=== PATIENT | male | born 1955 | race Caucasian/White ===

== ENCOUNTER 2021-01-13 17:39 | Inpatient (IN) | payer MEDICARE, OTHER ==
[~2021-01-13] VITALS: Ht 165.1 cm; Wt 49.9 kg
[2021-01-13] MEDS ORDERED: HYDROCODONE-AC1 EAC1 PO (18:44)
[2021-01-13] MEDS ORDERED: ZESTRIL20 MG PO (18:45)
[2021-01-13] MEDS ORDERED: LIPITOR80 MG PO (18:45)
[2021-01-13] MEDS ORDERED: ZETIA10 MG PO (18:46)
[2021-01-13] MEDS ORDERED: VENTOLIN HFA 66.7 GM INH (18:47)
[2021-01-13] MEDS ORDERED: VITAMIN D 40400 UNIT PO (18:48)
[2021-01-13 18:57] LABS: HEMOGLOBIN 14.1 gm/dl (14.0-17.5); RED BLOOD COUNT 4.45 M/UL (4.20-5.50); WHITE BLOOD COUNT 7.7 K/UL (4.5-11.0)
[2021-01-13 19:17] LABS: BUN/CREATININE RATIO 19 (0-10)
[2021-01-14 04:36] LABS: HEMOGLOBIN 13.8 gm/dl (14.0-17.5); RED BLOOD COUNT 4.35 M/UL (4.20-5.50); WHITE BLOOD COUNT 6.3 K/UL (4.5-11.0)
[2021-01-14 04:54] LABS: BUN/CREATININE RATIO 21 (0-10)
[2021-01-15 03:01] LABS: HEMOGLOBIN 13.7 gm/dl (14.0-17.5); RED BLOOD COUNT 4.39 M/UL (4.20-5.50)
[2021-01-15 03:02] LABS: WHITE BLOOD COUNT 8.7 K/UL (4.5-11.0)
[2021-01-15 03:31] LABS: BUN/CREATININE RATIO 18 (0-10)
[2021-01-15] MEDS ORDERED: LEVOFLOXACIN500 MG PO (08:43)
[2021-01-15] MEDS ORDERED: NORVASC10 MG PO (09:26)
== END 2021-01-15 12:53 | disposition home or self-care (01) | DRG 243 ==
LOC: ER1 17:39 → CDU 19:07 → PROG CARE 01-14 18:42
PROVIDERS: Emergency Medicine; Physician Assistant Medical; ADMIT Internal Medicine
PROC: 0JH606Z Insertion of Pacemaker, Dual Chamber into Chest Subcutaneous Tissue and Fascia, Open Approach (ICD-10-PCS; principal; 2021-01-14)
PROC: 02HK3JZ Insertion of Pacemaker Lead into Right Ventricle, Percutaneous Approach (ICD-10-PCS; 2021-01-14)
PROC: 02H63JZ Insertion of Pacemaker Lead into Right Atrium, Percutaneous Approach (ICD-10-PCS; 2021-01-14)
DX: I44.2 Atrioventricular block, complete (principal); I69.351 Hemiplegia and hemiparesis following cerebral infarction affecting right dominant side; R00.1 Bradycardia, unspecified; I25.10 Atherosclerotic heart disease of native coronary artery without angina pectoris; Z95.1 Presence of aortocoronary bypass graft; Z20.822 Contact with and (suspected) exposure to COVID-19; I27.20 Pulmonary hypertension, unspecified; I34.0 Nonrheumatic mitral (valve) insufficiency; I07.1 Rheumatic tricuspid insufficiency; I10 Essential (primary) hypertension; E78.5 Hyperlipidemia, unspecified; K21.9 Gastro-esophageal reflux disease without esophagitis; E55.9 Vitamin D deficiency, unspecified; I25.2 Old myocardial infarction; Z88.6 Allergy status to analgesic agent
CPT/HCPCS: ECHO; 33208; 36415; 71045; 80048; 80053; 82550; 82553; 83735; 83874; 83880; 84439; 84443; 84484; 85025; 85027; 85610; 85730; 93005; 93306; 96365; 96366; 96372; 96375; 99152; 99153; 99284; C1785; C1898; J0360; J1644; J1650; J2250; J3010; J3370; J7040; J7050; J7070; U0002